=== PATIENT | male | born 1950 | race Caucasian/White ===

== ENCOUNTER → 2017-11-24 | Outpatient (CLI) | payer MEDICARE ==
[~2017-11-24] MED LIST: GABA300C5 PO; METF500T PO; TAMS5CAP PO
[2017-11-24 10:55] LABS: AUTOMATED NEUTROPHIL # 4.1 TH/MM3 (1.8-7.7); BASOPHIL % 0.7 % (0.0-2.0); EOSINOPHIL # 0.1 TH/MM3 (0-0.4); EOSINOPHIL % 1.7 % (0.0-4.0); HEMOGLOBIN 14.7 GM/DL (13.0-17.0); LYMPH % 25.6 % (9.0-44.0); LYMPHOCYTE # 1.7 TH/MM3 (1.0-4.8); MEAN CELL VOLUME 89.4 FL (80.0-100.0); MEAN CORPUSCULAR HEMOGLOBIN 29.9 PG (27.0-34.0); MEAN CORPUSCULAR HGB CONC 33.4 % (32.0-36.0); MEAN PLATELET VOLUME 11.2 FL (7.0-11.0); MONO % 7.8 % (0.0-8.0); MONOCYTE # 0.5 TH/MM3 (0-0.9); NEUT % 64.2 % (16.0-70.0); PLATELET COUNT 102 TH/MM3 (150-450); RED BLOOD COUNT 4.92 MIL/MM3 (4.50-5.90); RED CELL DISTRIBUTION WIDTH 20.9 % (11.6-17.2); WHITE BLOOD COUNT 6.5 TH/MM3 (4.0-11.0)
[2017-11-24 10:59] LABS: PROTHROMBIN TIME - PATIENT 10.5 SEC (9.8-11.6)
--- NOTE | 2017-11-24 11:02 | RADRPT ---
EXAM DATE/TIME: 11/24/2017 10:45 [place] COMPARISON: No previous studies available for comparison. INDICATIONS : Evaluate for pneumonia, pneumothorax, and communicable disease. Preop for colostomy closure. MEDICAL HISTORY : Chronic obstructive pulmonary disease. SURGICAL HISTORY : Colostomy. ENCOUNTER: Initial ACUITY: 1 day PAIN SCORE: 0/10 LOCATION: Bilateral chest FINDINGS: PA and lateral views of the chest demonstrate the lungs to be symmetrically aerated without evidence of mass, infiltrate or effusion. The cardiomediastinal contours are unremarkable. Osseous structure s are intact. CONCLUSION: No acute disease. Nicholas Florez MD on November 24, 2017 at 10:59 Board Certified Radiologist. This report was verified electronically.
[2017-11-24 11:06] LABS: BLOOD UREA NITROGEN 12 MG/DL (7-18)
[2017-11-24 11:07] LABS: ALBUMIN 3.8 GM/DL (3.4-5.0); ALT (GPT) 14 U/L (12-78); AST (GOT) 12 U/L (15-37); BICARBONATE 31.1 MEQ/L (21.0-32.0); CALCIUM 9.1 MG/DL (8.5-10.1); CHLORIDE 105 MEQ/L (98-107); CREATININE 0.99 MG/DL (0.60-1.30); GLOMERULAR FILTRATION RATE 76 ML/MIN (>89); GLUCOSE,FASTING 103 MG/DL (74-99); SODIUM (NA) 143 MEQ/L (136-145)
[2017-11-24 11:10] LABS: ALKALINE PHOSPHATASE 81 U/L (45-117); TOTAL BILIRUBIN ADULT 0.4 MG/DL (0.2-1.0); TOTAL PROTEIN 7.4 GM/DL (6.4-8.2)
[2017-11-24 13:07] LABS: BILIRUBIN, URINE NEG (NEG); BLOOD, URINE NEG (NEG); GLUCOSE,URINE NEG (NEG); KETONE, URINE NEG (NEG); MUCUS URINE FEW /lpf (OCC); NITRITE,URINE NEG (NEG); PH, URINE 6.5 (5.0-8.5); SQUAMOUS EPITHELIAL CELL URINE 1 /hpf (0-5); URINE COLOR LIGHT-YELLOW (YELLW/STRAW); URINE LEUKOCYTE ESTERASE NEG (NEG)
--- NOTE | 2017-11-24 13:41 | EKG ---
Date Performed: 11/24/2017 Time Performed: 09:50:00 PTAGE: 67 years EKG: Baseline artifact present SINUS BRADYCARDIA BORDERLINE ECG NO PREVIOUS TRACING DOCTOR: Matty Hayden Interpretating Date/Time 11/24/2017 13:20:42
== END ==
LOC: CPRE 09:25
PROVIDERS: ATTEND Colon & Rectal Surgery
DX: Z01.810 Encounter for preprocedural cardiovascular examination (principal); Z01.812 Encounter for preprocedural laboratory examination; K94.09 Other complications of colostomy; R94.31 Abnormal electrocardiogram [ECG] [EKG]
CPT/HCPCS: 36415; 71046; 80053; 81001; 85025; 85610; 85730; 93005

== ENCOUNTER 2017-12-01 08:49 | Inpatient (IN) | payer MEDICARE ==
[~2017-12-01] VITALS: Ht 185.4 cm; Wt 106.5 kg
[2017-12-01] MEDS ORDERED: STERILE WATER FOR INJECTION 20 ML VIAL IV ONE (12:00)
[2017-12-01] MEDS ORDERED: VECURONIUM BROMIDE 20 MG VIAL IV ONE (12:00)
[2017-12-01] MEDS ORDERED: ROCURONIUM INJ 50 MG/5 ML SYRINGE IV PUSH ONE (12:00)
[2017-12-01] MEDS ORDERED: GLYCOPYRROLATE 1 MG/5 ML SYRINGE IV PUSH ONE (12:00)
[2017-12-01] MEDS ORDERED: PHENYLEPH/NS 1000 MCG/10 ML SYR IV ONE (12:00)
[2017-12-01] MEDS ORDERED: ePHEDrine/NS 25 MG/5 ML SYRINGE IV ONE (12:00)
[2017-12-01] MEDS ORDERED: NEOSTIGMINE 5 MG/5 ML SYRINGE IV PUSH ONE (12:00)
[2017-12-01] MEDS ORDERED: LIDOCAINE HCL 1% PF 5 ML SYRINGE OTHER ONE (12:00)
[2017-12-01] MEDS ORDERED: LACTATED RINGER'S 1000 ML INJ 1,000 ML IV ONE (12:00)
[2017-12-01] MEDS ORDERED: DEXAMETHASONE SOD PHOS 4 MG/ML VIAL IV ONE (12:00)
[2017-12-01] MEDS ORDERED: PROPOFOL 200 MG/20 ML AMP IV ONE (12:00)
[2017-12-01] MEDS ORDERED: ONDANSETRON HCL 4 MG/2 ML VIAL IV ONE (12:00)
[2017-12-01] MEDS ORDERED: ALVIMOPAN 12 MG CAPSULE ONE (12:11)
[2017-12-01] MEDS ORDERED: metroNIDAZOLE 500 MG INJ 100 ML IV ONE (12:12)
[2017-12-01] MEDS ORDERED: ceFAZolin INJ 1,000 MG VIAL ONE (12:12)
[2017-12-01] MEDS ORDERED: SODIUM CHLORIDE 0.9% INJ 100 ML ONE (12:12)
[2017-12-01] MEDS ORDERED: DEXT 5%-NACL 0.9% 1000 ML INJ 1,000 ML IV SCH (12:30)
[2017-12-01] MEDS ORDERED: LACTATED RINGER'S 1000 ML IV PRN (12:30)
[2017-12-01] MEDS ORDERED: ceFAZolin 1,000 MG/NS 100 ML IV SCH ×2 (12:30)
[2017-12-01] MEDS ORDERED: METRONIDAZOLE 500 MG/100 ML ISONTONIC SOLN IV SCH (12:30)
[2017-12-01] MEDS ORDERED: SODIUM CHLORID 0.9% 500 ML IV PRN (12:30)
[2017-12-01] MEDS ORDERED: METOPROLOL TARTRATE 25 MG TAB PO PRN (12:30)
[2017-12-01] MEDS ORDERED: INSULIN HUMAN REGULAR 1,000 UNITS/10 ML VIAL SQ PRN (12:30)
[2017-12-01] MEDS ORDERED: POVIDONE IODINE 5% (ANTISEPSIS KIT) 4 APPLICATIONS EACH NARE PRN (12:30)
[2017-12-01] MEDS ORDERED: CHLORHEXIDINE GLUCONATE 2 % 1 PACK (2 CLOTHS) TOPICAL PRN (12:30)
[2017-12-01] MEDS ORDERED: fentaNYL CITRATE 250 MCG/5 ML AMP ONE (13:22)
--- NOTE | 2017-12-01 14:45 | PD.OP ---
Operative Report Date of Surgery: Dec 01, 2017 Preoperative Diagnosis: Colostomy closure with history of GI bleed Postoperative Diagnosis: Same Procedure: Cystoscopy with placement of bilateral ureteral catheters Anesthesia: TAYLOR Surgeon: Rashad Garcia Coldfusion(s): None Resident Surgeon: None Operation and Findings: 67-year-old male with history of GI bleed and lower sigmoid resection presents for colostomy closure. Request for made by Dr. Martinez for insertion of bilateral ureteral catheters. The patient was brought to the operating room and placed in the dorsal lithotomy position. He was prepped and draped in usual sterile fashion, received preprocedure antibiotics and general endotracheal tube anesthesia was administered. 22 Cymraes scope was inserted in the bladder argueta cystoscopy did not reveal any abnormalities. The left ureteral orifice was identified and a 5 Cymraes opening catheter was inserted in the left ureteral orifice without difficulty. This was repeated again on the right side without difficulty. The Veras was then inserted and the catheters were then attached the Veras. He tolerated the procedure well. Rashad Garcia DO Dec 01, 2017 14:45
[2017-12-01] MEDS ORDERED: ACETAMINOPHEN 1000 MG/100 ML 100 ML IV ONE (15:54)
[2017-12-01] MEDS ORDERED: GLUCAGON 1 MG/ML VIAL OTHER PRN (17:00)
[2017-12-01] MEDS ORDERED: ACETAMINOPHEN/HYDROcodone 325 MG/5 MG TAB PO PRN (17:00)
[2017-12-01] MEDS ORDERED: ENALAPRILAT 1.25 MG/ML VIAL IV PUSH PRN (17:00)
[2017-12-01] MEDS ORDERED: ONDANSETRON HCL 4 MG/2 ML VIAL IV PUSH PRN (17:00)
[2017-12-01] MEDS ORDERED: POTASSIUM CHLOR 40 MEQ PREMIX 100 ML IV PRN (17:00)
[2017-12-01] MEDS ORDERED: NALOXONE HCL 0.4 MG/ML AMP IV PUSH PRN (17:00)
[2017-12-01] MEDS ORDERED: SODIUM CHLORIDE 0.9% FLUSH 10 ML FLUSH IV FLUSH PRN (17:00)
[2017-12-01] MEDS ORDERED: BENZOCAINE 6 MG/MENTHOL 10 MG LOZENGE BUCCAL PRN (17:00)
[2017-12-01] MEDS ORDERED: ZOLPIDEM TARTRATE 5 MG TAB PO PRN (17:00)
[2017-12-01] MEDS ORDERED: POTASSIUM CHLOR 20 MEQ PREMIX 100 ML IV PRN (17:00)
[2017-12-01] MEDS ORDERED: DEXTROSE 50% IN WATER 50 ML VIAL(D50) IV PUSH PRN (17:00)
[2017-12-01] MEDS ORDERED: Post-op Orders (for Pharmacy) XX ONE (17:16)
[2017-12-01] MEDS ORDERED: DO NOT ADM ANY ANTICOAGULANT DRUGS PRN (17:16)
--- NOTE | 2017-12-01 17:23 | MH ---
cc: Nicholas Awan MD DATE OF ADMISSION: 12/01/2017 CHIEF COMPLAINT: Colostomy and Saeid pouch. HISTORY OF PRESENT ILLNESS: This patient is a 67-year-old patient who underwent an emergency colectomy for a lower GI bleed and possible diverticulitis on 05/07/2017. He had GI bleeding and bled approximately 7 units of blood before the colectomy. For this reason, he presented for closure of his colostomy and Saeid pouch. PAST MEDICAL HISTORY, PAST SURGICAL HISTORY, FAMILY HISTORY, SOCIAL HISTORY, REVIEW OF SYSTEMS: Negative except for his previous colon surgery, sleep apnea and diabetes. He has also had an orchiectomy for an undescended testicle. Last colonoscopy was done 04/2017 and was normal. PHYSICAL EXAMINATION: GENERAL: Well-developed, well-nourished male, in no acute distress. SKIN: Warm and dry. HEENT: Extraocular muscles intact. NECK: Supple. CHEST: Clear. HEART: S1, S2 is heard. ABDOMEN: Obese, soft, nontender, no masses. There is a left lower quadrant colostomy. RECTAL EXAM: Inspection within normal limits. Digital exam normal. Flexible sigmoidoscopy was normal in the office. The Saeid pouch seemed to be about 20 cm in length in the office. EXTREMITIES: Range of motion within normal limits. NEUROLOGIC: Grossly normal. IMPRESSION: Colostomy with Saeid pouch. PLAN: Recommend closure. I recommend a partial colectomy, colostomy closure with a low anterior resection. I explained all the risks, benefits and alternatives to him including the risk of possible diverting ileostomy. He understood all the risks and wished to proceed. Nicholas Awan MD JCHARO/BAL , 05:07 PM , 05:23 PM
[2017-12-01] MEDS ORDERED: *morphine SULFATE 8 MG/ML PERIprocedure ONLY ONE ×3 (17:27→17:48)
[2017-12-01 17:44] LABS: AUTOMATED NEUTROPHIL # 14.3 TH/MM3 (1.8-7.7); BASOPHIL # 0.1 TH/MM3 (0-0.2); BASOPHIL % 0.4 % (0.0-2.0); EOSINOPHIL % 0.2 % (0.0-4.0); HEMATOCRIT 46.1 % (39.0-51.0); HEMOGLOBIN 15.2 GM/DL (13.0-17.0); LYMPH % 10.2 % (9.0-44.0); LYMPHOCYTE # 1.8 TH/MM3 (1.0-4.8); MEAN CELL VOLUME 90.4 FL (80.0-100.0); MEAN CORPUSCULAR HEMOGLOBIN 29.8 PG (27.0-34.0); MEAN CORPUSCULAR HGB CONC 32.9 % (32.0-36.0); MEAN PLATELET VOLUME 11.1 FL (7.0-11.0); MONOCYTE # 1.2 TH/MM3 (0-0.9); NEUT % 82.2 % (16.0-70.0); PLATELET COUNT 119 TH/MM3 (150-450); RED CELL DISTRIBUTION WIDTH 19.6 % (11.6-17.2); WHITE BLOOD COUNT 17.4 TH/MM3 (4.0-11.0)
[2017-12-01 17:59] LABS: BICARBONATE 26.4 MEQ/L (21.0-32.0); CALCIUM 8.8 MG/DL (8.5-10.1); CREATININE 1.26 MG/DL (0.60-1.30)
[2017-12-01] MEDS: METOCLOPRAMIDE HCL 10 MG/2 ML VIAL IVS SCH (18:00)
[2017-12-01] MEDS: D5-LR + KCL 20 MEQ INJ 1,000 ML IV SCH (18:05)
[2017-12-01] MEDS: MORPHINE SULFATE 30 MG/30 ML PCA IV SCH (18:07)
[2017-12-01] MEDS: INSULIN NovoLIN REGULAR SUPPLEMENTAL SCALE SQ SCH ×2 (18:09→20:50)
[2017-12-01] MEDS ORDERED: HYDROmorphone HCL PF 2 MG/ML VIAL ONE (18:13)
--- NOTE | 2017-12-01 20:08 | MP ---
cc: Nicholas Awan MD, John T MD Dominguez, Dr. DATE OF OPERATION: 12/01/2017 PREOPERATIVE DIAGNOSIS: Colostomy with Saeid pouch. POSTOPERATIVE DIAGNOSIS: Colostomy with Saeid pouch. OPERATIVE PROCEDURE: 1. Takedown of colostomy with left colectomy and a low anterior resection. 2. Omental flap. SURGEON: Nicholas Awan MD ASSISTANT TO THE DIRECTOR: Parveen Lawrence MD ESTIMATED BLOOD LOSS: 200 mL OPERATING TIME 2 hours and 10 minutes. OPERATIVE FINDINGS: This patient underwent an emergency sigmoid colectomy for a GI bleed about 6 months ago. Postoperatively, he has finally gained back his strength and wished closure of his colostomy. At surgery, exploration of the abdominal cavity revealed that the liver was palpably normal as was the gallbladder and the remainder of the colon. There were still some diverticula remaining in the sigmoid colon. The Saeid pouch was somewhat retracted down into the pelvis and the blood supply to the sigmoid and rectum was still intact. Bilateral ureteral catheters were placed by Dr. Rashad Garcia to facilitate identification of the ureters and the ureters were identified and protected at all times. A full left colectomy was done with a colorectal anastomosis at about 8 cm using an Ethicon 29 EEA stapling device. OPERATIVE TECHNIQUE: The patient was placed on the table in the supine position. After adequate general endotracheal anesthesia, the legs were placed in the perineal lithotomy position. The colostomy mucosa was closed with running 3-0 Vicryl suture and then the abdomen and perineum were prepped and draped in the usual manner. Transverse infraumbilical skin incision was made above the colostomy and taken down through the subcutaneous tissue and both rectus muscles and the peritoneal cavity was entered with the above-mentioned findings. There was not much in the way of adhesions, but the omentum was stuck down around the left colon and the splenic flexure region. Our attention was first turned to the colostomy and a vertical elliptical incision was made around the stoma site through the skin and taken down through the subcutaneous tissue and the colostomy was mobilized from its peritoneal sac and taken down from the abdominal wall. Next, the sigmoid and descending colon were mobilized along its peritoneal reflection. The omentum had been stuck down along the left colic gutter along the mesentery on the left side and this was dissected free. The splenic flexure and the remainder of the transverse colon were also mobilized entering the lesser sac, mobilizing the omentum. The omentum was somewhat shrunken from weight loss. Nevertheless, once the lesser sac was entered and the full transverse colon was mobilized, the superior hemorrhoidal vessels in the region of the inferior mesenteric artery were clamped, cut, and ligated. The inferior mesenteric artery at its origin was doubly clamped, cut, and doubly ligated with 0 Vicryl ligature and then the inferior mesenteric vein was likewise clamped, cut, and ligated. This allowed us to dissect the rectum from the sacral hollow, first lifting the mesorectum and proceeding inferiorly and posteriorly to the pelvic floor with electrocautery in the avascular plane. The lateral pelvic peritoneum was incised bilaterally and the lateral stalks were also mobilized down toward the pelvic floor. Both seminal vesicles were identified and the anterior cul-de-sac was incised and developed for a short distance, but the anastomosis was above the cul-de-sac level in the mid portion of the rectum. The mesorectum was clamped, cut, and ligated clearing the rectum in its mid portion and a pursestring stapling device was placed on the rectum and the rectum was divided. Dr. Lawrence then irrigated the rectum with saline solution to ensure that there was no mucus debris present in the rectum. Next, after fully mobilizing the descending and transverse colon as the left colic vessels were clamped, cut, and ligated and the mesenteric dissection was taken up to the marginal vessel distal to the middle colic vessels. Once this was done, it allowed us to bring down quality descending colon with minimal diverticular disease to use for the anastomosis. The remainder of the mesentery of the sigmoid was clamped, cut, and ligated and the descending colon was divided after placing another pursestring stapling device. The anvil of the 29 Ethicon EEA stapler was placed in the proximal bowel and the proximal pursestring was tied. Once this was done, Dr. Lawrence went below and placed the EEA instrument transanally and the distal pursestring was tied and the instrument was connected, closed and fired, creating the circular anastomosis. The anastomosis was under no tension and the blood supply was excellent. Dr. Lawrence then did proctosigmoidoscopy examination insufflating air into the rectum with saline solution in the pelvis and there were no air leaks identified. The anastomosis was measured at approximately 8 cm. This was just above the cul-de-sac in the mid portion of the rectum. The pelvis was then thoroughly irrigated with several liters of saline solution and aspirated dry as was the remainder of the abdominal cavity. Next, the previously mobilized omental flap was taken down the left colic gutter and placed in the pelvis anterior to the anastomosis. The bowels were replaced in the abdominal cavity in an intake clerk manner and then the abdominal cavity was closed in layers, first closing the colostomy site in the left lower quadrant, closing the posterior rectus sheath and peritoneum with a single strand #1 PDS suture. The anterior rectus sheath was closed, again vertically with a single strand #1 PDS suture as well and the subcutaneous tissue was irrigated thoroughly with saline solution and aspirated dry and the skin was closed with running 3-0 Vicryl subcuticular suture. Next, the abdominal incision was likewise closed in layers using a double-stranded #1 PDS for the posterior rectus sheath and then the muscle layer was irrigated thoroughly with at least a liter of saline solution and aspirated dry and then the anterior rectus sheath was closed with a double-stranded #1 PDS as well. The subcutaneous tissue, which was fairly obese, was irrigated with at least 1 liter of saline solution and aspirated dry and then the skin was approximated with a running 3-0 Vicryl subcuticular suture and a dressing was applied. Sponge, needle and instrument counts were reported as correct. The estimated blood loss was 200 mL. The patient tolerated the procedure well and left the operating room in good condition. MD CAIT Marcos//dana , 05:18 PM , 05:52 PM
[2017-12-01] MEDS ORDERED: ceFAZolin 2 GM PREMIX 50 ML ONE (20:45)
[2017-12-01] MEDS: CEFAZOLIN INJ 2,000 MG in SODIUM CHLORIDE 0.9% INJ 100 ML IV SCH (20:50)
[2017-12-01] MEDS: SODIUM CHLORIDE 0.9% FLUSH 10 ML FLUSH IV FLUSH SCH (20:50)
[2017-12-01] MEDS: FUROSEMIDE 20 MG/2 ML VIAL IV PUSH SCH (20:50)
[2017-12-01] MEDS: metroNIDAZOLE 500 MG INJ 100 ML IV SCH (22:00)
[2017-12-02] VITALS (7 sets, daily range): BP systolic 113–149; BP diastolic 63–88; PULSE 66–97; RESP 16–20; TEMP 97.4–98.7; O2SAT 69–97
[2017-12-02] MEDS: KETOROLAC TROMETHAMINE 30 MG/ML (IVP) VIAL IVP PRN ×2 (00:26→06:04)
[2017-12-02] MEDS: METOCLOPRAMIDE HCL 10 MG/2 ML VIAL IVS SCH ×4 (00:27→17:03)
[2017-12-02] MEDS ORDERED: POTASSIUM CHLORIDE INJ 20 MEQ in DEXTROSE 5%-LACTATED RING INJ 1,000 ML IV SCH (02:15)
[2017-12-02 04:09] LABS: AUTOMATED NEUTROPHIL # 13.4 TH/MM3 (1.8-7.7); BASOPHIL % 0.2 % (0.0-2.0); HEMATOCRIT 43.6 % (39.0-51.0); HEMOGLOBIN 14.5 GM/DL (13.0-17.0); LYMPH % 2.8 % (9.0-44.0); LYMPHOCYTE # 0.4 TH/MM3 (1.0-4.8); MEAN CORPUSCULAR HEMOGLOBIN 29.8 PG (27.0-34.0); MEAN CORPUSCULAR HGB CONC 33.1 % (32.0-36.0); MEAN PLATELET VOLUME 11.1 FL (7.0-11.0); MONO % 6.7 % (0.0-8.0); NEUT % 90.3 % (16.0-70.0); PLATELET COUNT 116 TH/MM3 (150-450); RED BLOOD COUNT 4.85 MIL/MM3 (4.50-5.90); WHITE BLOOD COUNT 14.8 TH/MM3 (4.0-11.0)
[2017-12-02 04:30] LABS: BICARBONATE 27.3 MEQ/L (21.0-32.0); CALCIUM 8.5 MG/DL (8.5-10.1); CREATININE 1.39 MG/DL (0.60-1.30)
[2017-12-02] MEDS: CEFAZOLIN INJ 2,000 MG in SODIUM CHLORIDE 0.9% INJ 100 ML IV SCH ×2 (04:58→12:21)
[2017-12-02] MEDS: PCA - TOTAL MG MORPHINE DELIVERED PER SHIFT SCH ×5 (06:00→22:00)
[2017-12-02] MEDS: metroNIDAZOLE 500 MG INJ 100 ML IV SCH ×2 (06:03→14:00)
--- NOTE | 2017-12-02 06:55 | HHI.PR ---
Subjective Remarks No N or V. No BMs. Pain controlled. Objective Vital Signs Date Time Temp Pulse Resp B/P (MAP) Pulse Ox O2 Delivery O2 Flow Rate FiO2 12/02/17 04:00 98.6 89 16 137/73 (94) 95 12/02/17 00:00 92 14 94 Nasal Cannula 2 12/02/17 00:00 98.6 97 16 149/88 (108) 97 12/01/17 23:00 93 14 147/84 (105) 93 Nasal Cannula 2 12/01/17 22:00 97.6 97 16 144/82 (102) 97 Nasal Cannula 2 12/01/17 21:00 83 14 161/81 (107) 95 12/01/17 20:00 88 16 168/90 (116) 100 12/01/17 19:30 87 16 156/84 (108) 100 12/01/17 19:15 84 14 151/78 (102) 100 12/01/17 19:00 82 16 172/82 (112) 100 12/01/17 18:45 80 16 165/75 (105) 100 12/01/17 18:30 77 19 174/77 (109) 100 12/01/17 18:15 82 16 149/87 (107) 100 12/01/17 18:07 12 12/01/17 18:00 72 12 166/88 (114) 98 12/01/17 17:45 72 11 153/80 (104) 98 12/01/17 17:30 75 14 160/91 (114) 100 12/01/17 17:15 97.3 82 12 157/74 (101) 99 Nasal Cannula 2 12/01/17 12:19 97.9 74 20 133/92 (106) 97 I/O 12/01/17 12/01/17 12/01/17 12/02/17 12/02/17 12/02/17 07:00 15:00 23:00 07:00 15:00 23:00 Intake Total 2957 ml 920 ml Output Total 1370 ml 850 ml Balance 1587 ml 70 ml Intake Oral 240 ml IV Total 1357 ml 680 ml Other 1600 ml Output Urine Total 1050 ml 800 ml Drainage Total 120 ml 50 ml Estimated Blood Loss 200 ml Result Diagram: 12/02/1731512/02/17315 Objective Remarks VS-S Abd: soft,flat,dressing dry. I&Os and Labs: OK Assessment and Plan Assessment and Plan Stable POD#1 Transfer to floor. CLD. OOB. Nicholas Awan MD Dec 02, 2017 06:54
[2017-12-02] MEDS: FUROSEMIDE 20 MG/2 ML VIAL IV PUSH SCH ×2 (07:44→21:32)
[2017-12-02] MEDS: SODIUM CHLORIDE 0.9% FLUSH 10 ML FLUSH IV FLUSH SCH ×2 (07:44→21:32)
[2017-12-02] MEDS: PANTOPRAZOLE SODIUM 40 MG VIAL IVP SCH (07:44)
[2017-12-02] MEDS: MORPHINE SULFATE 30 MG/30 ML PCA IV SCH (07:47)
[2017-12-02] MEDS: INSULIN NovoLIN REGULAR SUPPLEMENTAL SCALE SQ SCH ×4 (07:51→21:00)
[2017-12-02] MEDS: ALVIMOPAN 12 MG CAPSULE PO SCH (21:32)
[2017-12-02] MEDS: D5-LR + KCL 20 MEQ INJ 1,000 ML IV SCH (21:40)
[2017-12-03] MEDS: METOCLOPRAMIDE HCL 10 MG/2 ML VIAL IVS SCH ×5 (00:04→23:53)
[2017-12-03 03:30] VITALS: BP 133/75; PULSE 76; RESP 20; TEMP 98.4; O2SAT 93
[2017-12-03] MEDS: MORPHINE SULFATE 30 MG/30 ML PCA IV SCH (05:24)
[2017-12-03] MEDS: D5-LR + KCL 20 MEQ INJ 1,000 ML IV SCH ×3 (05:24→13:38)
[2017-12-03] MEDS: PCA - TOTAL MG MORPHINE DELIVERED PER SHIFT SCH ×2 (05:24→13:38)
[2017-12-03 05:34] LABS: AUTOMATED NEUTROPHIL # 9.2 TH/MM3 (1.8-7.7); BASOPHIL % 0.2 % (0.0-2.0); EOSINOPHIL % 0.3 % (0.0-4.0); HEMATOCRIT 37.2 % (39.0-51.0); HEMOGLOBIN 12.4 GM/DL (13.0-17.0); LYMPH % 13.9 % (9.0-44.0); LYMPHOCYTE # 1.6 TH/MM3 (1.0-4.8); MEAN CELL VOLUME 89.1 FL (80.0-100.0); MEAN CORPUSCULAR HEMOGLOBIN 29.6 PG (27.0-34.0); MEAN CORPUSCULAR HGB CONC 33.2 % (32.0-36.0); MEAN PLATELET VOLUME 11.3 FL (7.0-11.0); MONO % 8.6 % (0.0-8.0); PLATELET COUNT 95 TH/MM3 (150-450); RED BLOOD COUNT 4.17 MIL/MM3 (4.50-5.90); RED CELL DISTRIBUTION WIDTH 19.3 % (11.6-17.2); WHITE BLOOD COUNT 11.9 TH/MM3 (4.0-11.0)
[2017-12-03 06:00] LABS: BICARBONATE 30.5 MEQ/L (21.0-32.0); CALCIUM 8.2 MG/DL (8.5-10.1); CREATININE 0.98 MG/DL (0.60-1.30)
[2017-12-03 07:00] VITALS: BP 156/72; PULSE 77; RESP 17; TEMP 98.2; O2SAT 97
[2017-12-03] MEDS: INSULIN NovoLIN REGULAR SUPPLEMENTAL SCALE SQ SCH ×4 (08:00→20:54)
[2017-12-03] MEDS: PANTOPRAZOLE SODIUM 40 MG VIAL IVP SCH (08:22)
[2017-12-03] MEDS: ALVIMOPAN 12 MG CAPSULE PO SCH ×2 (08:23→20:53)
[2017-12-03] MEDS: FUROSEMIDE 20 MG/2 ML VIAL IV PUSH SCH ×2 (08:23→20:54)
[2017-12-03] MEDS: SODIUM CHLORIDE 0.9% FLUSH 10 ML FLUSH IV FLUSH SCH ×2 (08:24→20:54)
[2017-12-03 11:00] VITALS: BP 154/80; PULSE 78; RESP 19; TEMP 98.1; O2SAT 97
--- NOTE | 2017-12-03 13:12 | HHI.PR ---
Subjective Remarks POD#2 s/p resection/reanastomosis Sarbaia's comfortable Objective Vital Signs Date Time Temp Pulse Resp B/P (MAP) Pulse Ox O2 Delivery O2 Flow Rate FiO2 12/03/17 11:00 98.1 78 19 154/80 (104) 97 12/03/17 07:00 98.2 77 17 156/72 (100) 97 12/03/17 05:24 20 12/03/17 05:24 20 12/03/17 03:30 98.4 76 20 133/75 (94) 93 12/02/17 23:45 98.7 73 20 140/71 (94) 94 12/02/17 22:00 20 12/02/17 19:10 98.4 69 19 130/69 (89) 97 12/02/17 15:10 98.2 68 18 122/66 (84) 97 12/02/17 14:00 16 I/O 12/02/17 12/02/17 12/02/17 12/03/17 12/03/17 12/03/17 07:00 15:00 23:00 07:00 15:00 23:00 Intake Total 920 ml 133.4 ml 580 ml 1406 ml Output Total 850 ml 875 ml 1290 ml Balance 70 ml 133.4 ml -295 ml 116 ml Intake Oral 240 ml 480 ml 480 ml IV Total 680 ml 133.4 ml 100 ml 926 ml Output Urine Total 800 ml 850 ml 1250 ml Drainage Total 50 ml 25 ml 40 ml # Bowel Movements 0 0 Result Diagram: 12/03/1744712/03/17447 Objective Remarks Abdomen soft, nondistended, tender Dressing c/d/i Assessment and Plan Assessment and Plan Doing well Advance diet Decrease IVF Remove charlton in am Gilda Licona MD Dec 03, 2017 13:12
[2017-12-03 15:00] VITALS: BP 147/80; PULSE 77; RESP 18; O2SAT 96
[2017-12-03] MEDS: ACETAMINOPHEN/HYDROcodone 325 MG/5 MG TAB PO PRN ×2 (16:24→20:55)
[2017-12-03 20:00] VITALS: BP 161/78; PULSE 79; RESP 18; TEMP 98.2; O2SAT 96
[2017-12-04] VITALS: BP 161/87; PULSE 81; RESP 18; TEMP 98; O2SAT 94
[2017-12-04] MEDS: ACETAMINOPHEN/HYDROcodone 325 MG/5 MG TAB PO PRN ×4 (02:10→21:37)
[2017-12-04] MEDS: METOCLOPRAMIDE HCL 10 MG/2 ML VIAL IVS SCH ×3 (05:50→18:13)
[2017-12-04] MEDS: D5-LR + KCL 20 MEQ INJ 1,000 ML IV SCH (06:06)
[2017-12-04] MEDS: PANTOPRAZOLE SODIUM 40 MG VIAL IVP SCH (07:54)
[2017-12-04] MEDS: FUROSEMIDE 20 MG/2 ML VIAL IV PUSH SCH (07:55)
[2017-12-04] MEDS: SODIUM CHLORIDE 0.9% FLUSH 10 ML FLUSH IV FLUSH SCH ×2 (07:55→21:35)
[2017-12-04] MEDS: INSULIN NovoLIN REGULAR SUPPLEMENTAL SCALE SQ SCH ×4 (07:55→21:40)
[2017-12-04 08:00] VITALS: BP 146/83; PULSE 75; RESP 16; TEMP 98.2; O2SAT 96
[2017-12-04] MEDS: ALVIMOPAN 12 MG CAPSULE PO SCH ×2 (09:15→21:36)
[2017-12-04] MEDS ORDERED: PNEUMOCOCCAL POLYVALENT INJ 25 MCG/0.5 ML SYR IM ONE (10:00)
[2017-12-04 12:00] VITALS: BP 121/81; PULSE 91; RESP 16; TEMP 98.4; O2SAT 95
--- NOTE | 2017-12-04 12:43 | HHI.PR ---
Subjective Remarks POD#3 s/p resection/reanastomosis Sarabia's comfortable Objective Vital Signs Date Time Temp Pulse Resp B/P (MAP) Pulse Ox O2 Delivery O2 Flow Rate FiO2 12/04/17 08:00 98.2 75 16 146/83 (104) 96 12/04/17 00:00 98.0 81 18 161/87 (111) 94 12/03/17 20:00 98.2 79 18 161/78 (105) 96 12/03/17 15:00 77 18 147/80 (102) 96 12/03/17 13:38 17 I/O 12/03/17 12/03/17 12/03/17 12/04/17 12/04/17 12/04/17 07:00 15:00 23:00 07:00 15:00 23:00 Intake Total 1406 ml 540 ml 240 ml Output Total 1290 ml 2245 ml 3535 ml 750 ml Balance 116 ml -1705 ml -3295 ml -750 ml Intake Oral 480 ml 540 ml 240 ml IV Total 926 ml Output Urine Total 1250 ml 2200 ml 3500 ml 750 ml Drainage Total 40 ml 45 ml 35 ml # Bowel Movements 0 0 2 Result Diagram: 12/03/17 0448 12/03/178 Objective Remarks Abdomen soft, nondistended, tender wound clean DANA - serosanguinous Assessment and Plan Assessment and Plan Doing well Possibly home tomorrow Gilda Licona MD Dec 04, 2017 12:43
[2017-12-04 16:00] VITALS: BP 127/76; PULSE 93; RESP 17; TEMP 97.9; O2SAT 95
[2017-12-04 20:00] VITALS: BP 141/74; PULSE 79; RESP 20; TEMP 97.7; O2SAT 97
[2017-12-05] VITALS: BP 145/86; PULSE 79; RESP 18; O2SAT 94
[2017-12-05] MEDS: METOCLOPRAMIDE HCL 10 MG/2 ML VIAL IVS SCH ×3 (00:34→12:00)
[2017-12-05] MEDS: ACETAMINOPHEN/HYDROcodone 325 MG/5 MG TAB PO PRN ×3 (02:42→11:26)
[2017-12-05 08:00] VITALS: BP 143/86; PULSE 71; RESP 18; TEMP 98.1; O2SAT 94
[2017-12-05] MEDS: INSULIN NovoLIN REGULAR SUPPLEMENTAL SCALE SQ SCH ×2 (08:00→12:00)
[2017-12-05 08:05] LABS: HEMOGLOBIN 13.7 GM/DL (13.0-17.0); MEAN CELL VOLUME 89.7 FL (80.0-100.0); MEAN CORPUSCULAR HGB CONC 33.5 % (32.0-36.0); MEAN PLATELET VOLUME 11.1 FL (7.0-11.0); PLATELET COUNT 112 TH/MM3 (150-450); RED BLOOD COUNT 4.57 MIL/MM3 (4.50-5.90); RED CELL DISTRIBUTION WIDTH 18.4 % (11.6-17.2); WHITE BLOOD COUNT 7.8 TH/MM3 (4.0-11.0)
[2017-12-05 08:31] LABS: CALCIUM 9.1 MG/DL (8.5-10.1); CREATININE 0.94 MG/DL (0.60-1.30)
[2017-12-05] MEDS: ALVIMOPAN 12 MG CAPSULE PO SCH (09:21)
[2017-12-05] MEDS: PANTOPRAZOLE SODIUM 40 MG VIAL IVP SCH (09:21)
[2017-12-05 09:22] VITALS: RESP 16
[2017-12-05] MEDS: SODIUM CHLORIDE 0.9% FLUSH 10 ML FLUSH IV FLUSH SCH (09:22)
--- NOTE | 2017-12-05 09:48 | HHI.DCPOC ---
Discharge Care Plan Diagnosis: (1) Partial colectomy, colostomy closure Your Health Problems Are: Incision/Drains Appetite Changes Irregular Bowel Function Exercise Tolerance Goals to Promote Your Health * To prevent worsening of your condition and complications * To maintain your health at the optimal level Directions to Meet Your Goals Take your medications as prescribed Follow your dietary instruction Follow activity as directed Keep your appointments as scheduled Take your immunizations and boosters as scheduled If your symptoms worsen call your PCP, if no PCP go to Urgent Care Center or Emergency Room Smoking is Dangerous to Your Health. Avoid second hand smoke Call the 24-hour hour crisis hotline for domestic abuse at Nicholas Awan MD Dec 05, 2017 09:48
--- NOTE | 2017-12-05 09:51 | HHI.PR ---
Subjective Remarks No N or V. BM x2. Pain controlled Objective Vital Signs Date Time Temp Pulse Resp B/P (MAP) Pulse Ox O2 Delivery O2 Flow Rate FiO2 12/05/17 09:22 16 12/05/17 08:00 98.1 71 18 143/86 (105) 94 12/05/17 00:00 79 18 145/86 (105) 94 12/04/17 20:00 97.7 79 20 141/74 (96) 97 12/04/17 16:00 97.9 93 17 127/76 (93) 95 12/04/17 12:00 98.4 91 16 121/81 (94) 95 I/O 12/04/17 12/04/17 12/04/17 12/05/17 12/05/17 12/05/17 07:00 15:00 23:00 07:00 15:00 23:00 Intake Total 240 ml 360 ml 240 ml Output Total 3535 ml 750 ml 310 ml 500 ml Balance -3295 ml -750 ml 50 ml -260 ml Intake Oral 240 ml 240 ml IV Total 360 ml Output Urine Total 3500 ml 750 ml 250 ml 500 ml Drainage Total 35 ml 60 ml # Voids 1 # Bowel Movements 0 2 Result Diagram: 12/05/17 0720 12/05/17 0657 Objective Remarks VS-S Abd: soft,flat,wound clean. Drain removed by me I&Os and Labs: OK Assessment and Plan Assessment and Plan Stable POD#4 D/C today. Instructions given Nicholas Awan MD Dec 05, 2017 09:50
== END 2017-12-05 12:21 | disposition home or self-care (01) | DRG 331 ==
LOC: HSDI 11:19 → EDUNIT# 13:30 → HCPC 12-02 → N07B 12-03 18:05
PROVIDERS: ADMIT Colon & Rectal Surgery; ATTEND Colon & Rectal Surgery
PROC: 0T788DZ Dilation of Bilateral Ureters with Intraluminal Device, Via Natural or Artificial Opening Endoscopic (ICD-10-PCS; 2017-12-01)
PROC: 0DTG0ZZ Resection of Left Large Intestine, Open Approach (ICD-10-PCS; principal; 2017-12-01 13:49)
PROC: 0DSP0ZZ Reposition Rectum, Open Approach (ICD-10-PCS; 2017-12-01 13:49)
DX: Z43.3 Encounter for attention to colostomy (principal); E11.9 Type 2 diabetes mellitus without complications; K57.30 Diverticulosis of large intestine without perforation or abscess without bleeding; Z23 Encounter for immunization
CPT/HCPCS: 80048; 82948; 85025; 85027; 86850; 86900; 86901; 88307; 88309; 90732; 94150; C9113; J0131; J0690; J1100; J1170; J1885; J1940; J2270; J2370; J2405; J2710; J2765; J3010; J3480; J7120